=== PATIENT | female | born 1990 | race Caucasian/White ===

== ENCOUNTER 2020-08-04 07:28 | Day surgery (SDC) | payer BC ==
[~2020-08-04 07:28] MED LIST: Lactated Ringers 1,000 ML IV SCH; Lidocaine 1% 4 ML ONE; Lidocaine 1%/Sod Bicarbonate in NS 8.4% 1 ML Syringe IDERM PRN; Propofol 200 MG/20 ML SDV ONE; Sodium Chloride 0.9% 10 ML Syringe FLUSH PRN
--- NOTE | 2020-08-04 07:48 | PCM.PREANE ---
Preanesthetic Assessment - Anesthesia/Transfusion/Family Hx Anesthesia History: Prior Anesthesia Without Reaction Family History of Anesthesia Reaction: No Transfusion History: No Prior Transfusion(s) - Review of Systems General: No Symptoms Pulmonary: No Symptoms Cardiovascular: No Symptoms Gastrointestinal: No Symptoms Neurological: No Symptoms Other: Reports: None - Physical Assessment NPO Status Date: 08/03/20 NPO Status Time: 20:30 ASA Class: 2 Mental Status: Alert & Oriented x3 Airway Class: Mallampati = 1 Dentition: Reports: Normal Dentition, Dentures Thyro-Mental Finger Breadths: 3 Mouth Opening Finger Breadths: 3 ROM/Head Extension: Full Lungs: Clear to Auscultation, Normal Respiratory Effort Cardiovascular: Regular Rate, Regular Rhythm - Allergies Allergies/Adverse Reactions: Allergies Allergy/AdvReac Type Severity Reaction Status Date / Time amoxicillin Allergy Hives Verified 08/03/20 13:43 sulfamethoxazole Allergy Hives Verified 08/03/20 13:43 [From Bactrim] trimethoprim [From Bactrim] Allergy Hives Verified 08/03/20 13:43 - Acknowledgements Anesthesia Type Planned: MAC Pt an Appropriate Candidate for the Planned Anesthesia: Yes Alternatives and Risks of Anesthesia Discussed w Pt/Guardian: Yes Pt/Guardian Understands and Agrees with Anesthesia Plan: Yes PreAnesthesia Questionnaire HEENT History: Reports: Allergic Rhinitis, Impaired Vision, Sinusitis Respiratory History: Reports: None Gastrointestinal History: Reports: Other (See Below) Other Gastrointestinal History: abdominal pain, nausea and vomiting Genitourinary History: Reports: None [employer]ETING [employer]GER [employer] COMM[employer]ICATIONS History: Reports: Other (See Below) Other OB/BYN History: vaginal irritation Musculoskeletal History: Reports: None Neurological History: Reports: None Psychiatric History: Reports: ADHD, Anxiety Endocrine/Metabolic History: Reports: None Hematologic History: Reports: None Immunologic History: Reports: None Oncologic (Cancer) History: Reports: None Dermatologic History: Reports: Other (See Below) Other Dermatologic History: nevus - Past Surgical History Head Surgeries/Procedures: Reports: None HEENT Surgical History: Reports: Oral Surgery Cardiovascular Surgical History: Reports: None Respiratory Surgical History: Reports: None GI Surgical History: Reports: None Female Surgical History: Reports: None Male Surgical History: Reports: None Endocrine Surgical History: Reports: None Neurological Surgical History: Reports: None Musculoskeletal Surgical History: Reports: None Oncologic Surgical History: Reports: None Dermatological Surgical History: Reports: None - SUBSTANCE USE Smoking Status *Q: Former Smoker Recreational Drug Use History: No - HOME MEDS Home Medications: Home Meds Loratadine [Claritin] 10 mg PO DAILY 08/03/20 [History] Methylphenidate [Metadate ER] 10 mg PO BID 08/03/20 [History] Mometasone Furoate [Nasonex [place]] 1 dose NASBOTH DAILY 08/03/20 [History] Olopatadine [Pataday 0.2% Ophth Soln] 1 drop EYEBOTH ASDIRECTED PRN 08/03/20 [History] Ondansetron [Zofran] 4 mg PO Q6HR PRN 08/03/20 [History] - CURRENT (IN HOUSE) MEDS Current Meds: Current Medications Lactated Ringer's (Ringers, Lactated) 1,000 mls @ 125 mls/hr IV ASDIRECTED BRADY Stop: 08/04/20 23:00 Lidocaine/Sodium Bicarbonate (Buffered Lidocaine 1% In Ns 8.4%) 0.25 ml IDERM ONETIME PRN PRN Reason: Prior to IV Start Stop: 08/04/20 18:00 Sodium Chloride (Saline Flush) 10 ml FLUSH ASDIRECTED PRN PRN Reason: Keep Vein Open Stop: 08/04/20 18:00 Discontinued Medications Lidocaine HCl (Xylocaine-Mpf 1%) Confirm Administered Dose 4 mls @ as directed .ROUTE .STK-MED ONE Stop: 08/04/20 07:01 Propofol (Diprivan 20 Ml) Confirm Administered Dose 200 mg .ROUTE .STK-MED ONE Stop: 08/04/20 07:01
--- NOTE | 2020-08-04 09:23 | PCM.PRNOTE ---
- Free Text/Narrative Note: Date: 08/04/2020 Procedure: diagnostic esophagogastroduodenoscopy Indication: epigastric pain, reflux-type symptoms Endoscopist: Ismael Barker MD Findings: small hiatal hernia with gross appearance of mild reflux esophagitis Detailed Report: The patient was taken to the endoscopy suite and placed in left lateral decubitus position. Time out was performed and monitored sedation initiated. A bite block was placed. The endoscope was inserted orally and advanced to the second portion of the duodenum with ease. The duodenal mucosa appeared normal. A biopsy with cold forceps was obtained. The stomach appeared normal. A sample of the gastric antral mucosa was obtained. On retroflexion within the stomach, a small sliding hiatal hernia was noted. The Z line appeared fairly normal. A biopsy of distal esophageal mucosa was obtained. There appeared to be mild linear erythematous streaking of the distal esophageal mucosa. Air was suctioned from the stomach prior to removal of the scope. The patient tolerated the procedure well.
--- NOTE | 2020-08-04 09:28 | PCM48HPAN ---
Post Anesthesia Note - EVALUATION WITHIN 48HRS OF ANESTHETIC Vital Signs in Normal Range: Yes Patient Participated in Evaluation: Yes Respiratory Function Stable: Yes Airway Patent: Yes Cardiovascular Function Stable: Yes Hydration Status Stable: Yes Pain Control Satisfactory: Yes Nausea and Vomiting Control Satisfactory: Yes Mental Status Recovered: Yes Vital Signs: Last Vital Signs Temp 36.4 C 08/04/20 07:40 Pulse 80 08/04/20 07:40 Resp 16 08/04/20 07:40 BP 111/64 08/04/20 07:40 Pulse Ox 97 08/04/20 07:40
== END 2020-08-04 09:55 | disposition home or self-care (01) ==
LOC: JD.SDS 07:28
PROVIDERS: ATTEND Surgery
DX: K21.00 Gastro-esophageal reflux disease with esophagitis, without bleeding (principal); K44.9 Diaphragmatic hernia without obstruction or gangrene; F90.9 Attention-deficit hyperactivity disorder, unspecified type; F41.9 Anxiety disorder, unspecified; Z88.0 Allergy status to penicillin; Z88.1 Allergy status to other antibiotic agents; Z79.899 Other long term (current) drug therapy; Z87.891 Personal history of nicotine dependence; Z88.2 Allergy status to sulfonamides; Z88.8 Allergy status to other drugs, medicaments and biological substances; Z01.812 Encounter for preprocedural laboratory examination; Z20.828 Contact with and (suspected) exposure to other viral communicable diseases
CPT/HCPCS: 43239; 81025; J2001; J2704; J7120; 00731

== ENCOUNTER 2021-06-04 21:44 | Inpatient (IN) | payer BC ==
[2021-06-04] MEDS ORDERED: Sodium Chloride 0.9% 10 ML Syringe FLUSH PRN (22:27)
[2021-06-04] MEDS ORDERED: Nalbuphine 10 MG/1 ML Vial IVPUSH PRN (22:27)
[2021-06-04] MEDS ORDERED: Calcium Carbonate 500 MG Tab.Chew PO PRN (22:27)
[2021-06-04] MEDS ORDERED: Ondansetron 4 MG/2 ML SDV IVPUSH PRN (22:27)
[2021-06-04] MEDS ORDERED: Oxytocin/Lactated Ringers 10 UNIT/1,000 ML BAG IV SCH ×2 (22:30→22:45)
[2021-06-04] MEDS: Lactated Ringers 1,000 ML IV SCH (23:05)
[2021-06-05] MEDS ORDERED: fentaNYL 100 MCG/2 ML SDV EPIDUR PRN (04:19)
[2021-06-05] MEDS ORDERED: ePHEDrine 50 MG/ML SDV IVPUSH PRN (04:19)
[2021-06-05] MEDS ORDERED: Bupivacaine/fentaNYL/NS 100 ML Bag EPIDUR PRN (04:19)
[2021-06-05] MEDS ORDERED: diphenhydrAMINE 50 MG/ML SDV IVPUSH PRN (04:19)
--- NOTE | 2021-06-05 04:19 | PCM.PREANE ---
Preanesthetic Assessment - Procedure Proposed Procedure: Continuous labor epidural - Anesthesia/Transfusion/Family Hx Anesthesia History: Prior Anesthesia Without Reaction Transfusion History: No Prior Transfusion(s) - Review of Systems General: No Symptoms Pulmonary: No Symptoms Cardiovascular: No Symptoms Gastrointestinal: No Symptoms Neurological: No Symptoms Other: Reports: None - Physical Assessment Vital Signs: Last Vital Signs Temp 98.1 F 06/04/21 21:47 Pulse 95 06/04/21 21:47 Resp 16 06/04/21 21:47 BP 126/71 06/04/21 21:47 Pulse Ox 98 06/04/21 21:47 Height: 1.6 m Weight: 89.63 kg ASA Class: 2 Mental Status: Alert & Oriented x3 Airway Class: Mallampati = 2 Dentition: Reports: Normal Dentition Thyro-Mental Finger Breadths: 3 Mouth Opening Finger Breadths: 3 ROM/Head Extension: Full Lungs: Clear to Auscultation, Normal Respiratory Effort Cardiovascular: Regular Rate, Regular Rhythm - Lab Values: Laboratory Last Values WBC 14.44 K/mm3 (3.98-10.04) H 06/04/21 22:50 RBC 3.76 M/mm3 (3.98-5.22) L 06/04/21 22:50 Hgb 10.9 gm/dl (11.2-15.7) L D 06/04/21 22:50 Hct 33.5 % (34.1-44.9) L 06/04/21 22:50 MCV 89.1 fl (79.4-94.8) 06/04/21 22:50 MCH 29.0 pg (25.6-32.2) 06/04/21 22:50 MCHC 32.5 g/dl (32.2-35.5) 06/04/21 22:50 RDW Std Deviation 46.7 fL (36.4-46.3) H 06/04/21 22:50 Plt Count 238 K/mm3 (182-369) D 06/04/21 22:50 MPV 10.3 fl (9.4-12.3) 06/04/21 22:50 Neut % (Auto) 76.8 % (34.0-71.1) H 06/04/21 22:50 Lymph % (Auto) 12.0 % (19.3-51.7) L 06/04/21 22:50 [place] % (Auto) 9.8 % (4.7-12.5) 06/04/21 22:50 Eos % (Auto) 0.8 (0.7-5.8) 06/04/21 22:50 Baso % (Auto) 0.1 % (0.1-1.2) 06/04/21 22:50 Neut # (Auto) 11.10 K/mm3 (1.56-6.13) H 06/04/21 22:50 Lymph # (Auto) 1.73 K/mm3 (1.18-3.74) 06/04/21 22:50 [place] # (Auto) 1.42 K/mm3 (0.24-0.36) H 06/04/21 22:50 Eos # (Auto) 0.11 K/mm3 (0.04-0.36) 06/04/21 22:50 Baso # (Auto) 0.01 K/mm3 (0.01-0.08) 06/04/21 22:50 Membrane Rupture Positive H 06/04/21 22:00 SARS-CoV-2 RNA (LEONEL) Negative (NEGATIVE) 06/04/21 22:30 Blood Type A NEGATIVE 06/04/21 22:50 Gel Antibody Screen Positive 06/04/21 22:50 - Allergies Allergies/Adverse Reactions: Allergies Allergy/AdvReac Type Severity Reaction Status Date / Time amoxicillin Allergy Hives Verified 06/04/21 21:52 sulfamethoxazole Allergy Hives Verified 06/04/21 21:52 [From Bactrim] trimethoprim [From Bactrim] Allergy Hives Verified 06/04/21 21:52 - Acknowledgements Anesthesia Type Planned: Epidural Pt an Appropriate Candidate for the Planned Anesthesia: Yes Alternatives and Risks of Anesthesia Discussed w Pt/Guardian: Yes Pt/Guardian Understands and Agrees with Anesthesia Plan: Yes PreAnesthesia Questionnaire HEENT History: Reports: Allergic Rhinitis, Impaired Vision, Sinusitis Cardiovascular History: Reports: Other (See Below) Other Cardiovascular History: chest pain Respiratory History: Reports: None Gastrointestinal History: Reports: Other (See Below) Other Gastrointestinal History: abdominal pain, nausea and vomiting Genitourinary History: Reports: None 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 OB/BYN History: vaginal irritation Musculoskeletal History: Reports: None Neurological History: Reports: None Psychiatric History: Reports: ADHD, Anxiety Endocrine/Metabolic History: Reports: None Hematologic History: Reports: None Immunologic History: Reports: None Oncologic (Cancer) History: Reports: None Dermatologic History: Reports: Other (See Below) Other Dermatologic History: nevus - Past Surgical History Head Surgeries/Procedures: Reports: None HEENT Surgical History: Reports: Oral Surgery Cardiovascular Surgical History: Reports: None Respiratory Surgical History: Reports: None GI Surgical History: Reports: None Female Surgical History: Reports: None Endocrine Surgical History: Reports: None Neurological Surgical History: Reports: None Musculoskeletal Surgical History: Reports: None Oncologic Surgical History: Reports: None Dermatological Surgical History: Reports: None - SUBSTANCE USE Tobacco Use Status *Q: Never Tobacco User Second Hand Smoke Exposure: No Recreational Drug Use History: No - HOME MEDS Home Medications: Home Meds Ferrous Sulfate [Iron] 1 tab PO 06/04/21 [History] Omeprazole Magnesium [Prilosec Otc] 1 06/04/21 [History] Vits #93/Iron Fum/FA [ Formula Tablet] 1 tab PO DAILY 06/04/21 [History] - CURRENT (IN HOUSE) MEDS Current Meds: Current Medications Calcium Carbonate/Glycine (Calcium Carbonate 500 Mg Tab.Chew) 1,000 mg PO Q2H PRN PRN Reason: Indigestion Lactated Ringer's (Ringers, Lactated) 1,000 mls @ 100 mls/hr IV ASDIRECTED BRADY Last Admin: 06/04/21 23:05 Dose: 100 mls/hr Documented by: Oxytocin/Lactated Ringer's (Pitocin In Lr 10 Units/1,000 Ml) 10 unit in 1,000 mls @ 500 mls/hr IV .CONTINUOUS BRADY Oxytocin/Lactated Ringer's (Pitocin In Lr 10 Units/1,000 Ml) 10 unit in 1,000 mls @ 12 mls/hr IV TITRATE BRADY; Protocol Last Titration: 06/05/21 03:30 Dose: 12 munits/min, 72 mls/hr Documented by: Nalbuphine HCl (Nalbuphine 10 Mg/1 Ml Vial) 10 mg IVPUSH Q2H PRN PRN Reason: Pain Last Admin: 06/05/21 02:16 Dose: 10 mg Documented by: Ondansetron HCl (Ondansetron 4 Mg/2 Ml Sdv) 4 mg IVPUSH Q4H PRN PRN Reason: Nausea/Vomiting Sodium Chloride (Sodium Chloride 0.9% 10 Ml Syringe) 10 ml FLUSH ASDIRECTED PRN PRN Reason: Keep Vein Open
[2021-06-05] MEDS: Lactated Ringers 1,000 ML IV SCH ×2 (04:38→06:57)
[2021-06-05] MEDS ORDERED: Oxytocin/Lactated Ringers 20 UNIT/1,000 ML BAG IV SCH (08:45)
--- NOTE | 2021-06-05 09:08 | PCM.LDHP ---
L&D History of Present Illness - General Date of Service: 06/05/21 Admit Problem/Dx: Patient Status Order with Admit Dx/Problem 06/04/21 21:47 Patient Status [ADT] Routine 06/04/21 22:28 Patient Status [ADT] Routine Admission Diagnosis/Problem Admission Diagnosis/Problem 06/05/21 09:00 Juan Jose is a 31-year-old 1 para 0 female presently at 39-1/7 weeks with an JOSH of 06/11/2021 admitted on 06/04/2021 with SROM and positive AmniSure in early labor. Source of Information: Patient History Limitations: Reports: No Limitations - History of Present Illness Introduction:: Juan Jose is a 31-year-old 1 para 0 female presently at 39-1/7 weeks with an JOSH of 06/11/2021 admitted on 06/04/2021 with SROM and positive AmniSure in early labor. She reports being seen in L&D over the weekend with reported loss of vaginal fluid. AmniSure at that time was negative. This leakage increased and patient was again seen on the evening of 06/04/2021 at which time AmniSure returned positive. She is admitted. She was started on Pitocin induction because of somewhat uncertain time of onset of leakage of fluid. She is presently ashish and has had an epidural placed with good results. PRACTICE COORDINATOR history: 1 para 0. JOSH 06/11/2021 Ultrasound done on 11/04/2020 at 8-5/7 weeks gestational age. Patient was seen on a very regular basis throughout the . Her vital signs remained stable throughout the . Her weight gain was from 133 pounds to approximately 196 pounds for a 63 pound increase. She is made good fundal height growth. has been unremarkable by her history. Laboratory testing shows blood to be a negative. Patient did receive Rh immunoglobulin therapy at the end of second trimester. Her first hemoglobin was 12.0 and platelets were 268,000. She is rubella immune. RPR was nonreactive. Hepatitis B surface antigen and hepatitis C antibody evaluations were negative and nonreactive. Chlamydia and gonorrhea assays were both negative. Her 1 hour GTT in second trimester was normal at 104 mg/dL. Second trimester met hemoglobin was 10.8 g/dL and patient was started on iron supplementation. Platelets at that time were 291,000. Her group B strep screen is negative. Allergies: 1. Amoxicillin 2. Bactrim DS Medications: 1. vitamins 1 daily 2. Loratadine as needed for seasonal allergies 3. Nasonex as needed for allergies 4. Omeprazole early in the for nausea 5. Ferrous sulfate 325 mg p.o. daily Past medical history: 1. Gastroesophageal reflux diseaseevaluated with upper GI which was found to be normal 2. Seasonal allergies Past surgical history: 1. Randolph teeth extraction 2. Upper GI Family history: Parents are alive and well. Father with history of diabetes just starting on medications. Patient has 3 siblings who are alive and well. Maternal grand parents are alive and well with no significant health problems. Paternal grandfather secondary to Parkinson's. Paternal grandmother is alive and well. There is no family history of of bleeding disorders, blood fede tting disorders, unusual reactions to medications or related problems. Social history: Patient is . is Macho. She lives in [place]. She does not use any significant also alcohol, drugs or tobacco. Review of systems: In general patient has no complaints. Skin: Negative Lungs: No infectious symptoms or shortness of breath Cardiovascular: No chest pain or exercise intolerance Breasts: No lumps, changes in size, pain, dimpling, discharge or axillary or supraclavicular concerns. GI: Negative : body habitus changes Musculoskeletal: Negative Neurological: Negative In general the patient is well-developed, well-nourished, overweight, pleasant female of stated age in no acute distress. Skin is warm dry without lesions. HEENT, neck and back within normal limits. Lungs are clear with good breath sounds in all lung zepeda. Cardiovascular exam shows regular and rhythm without murmurs. Breast exam is deferred have been done at first annual visit and found to be normal. It is not repeated at this time. Abdomen is fundal height consistent with dates. Last evaluation clinic fundal height was 37 cm with baby in vertex presentation. Genital per digital exam shows cervix to be 4 cm, 9% effaced, -1 station, anterior, soft, cephalic presentation Extremities and neurological exam are grossly within normal limits. Pain Score: 2 - Related Data Allergies/Adverse Reactions: Allergies Allergy/AdvReac Type Severity Reaction Status Date / Time amoxicillin Allergy Hives Verified 06/04/21 21:52 sulfamethoxazole Allergy Hives Verified 06/04/21 21:52 [From Bactrim] trimethoprim [From Bactrim] Allergy Hives Verified 06/04/21 21:52 Home Medications: Home Meds Ferrous Sulfate [Iron] 1 tab PO 06/04/21 [History] Omeprazole Magnesium [Prilosec Otc] 1 06/04/21 [History] Vits #93/Iron Fum/FA [ Formula Tablet] 1 tab PO DAILY 06/04/21 [History] Past Medical History HEENT History: Reports: Allergic Rhinitis, Impaired Vision, Sinusitis Cardiovascular History: Reports: Other (See Below) Other Cardiovascular History: chest pain Respiratory History: Reports: None Gastrointestinal History: Reports: Other (See Below) Other Gastrointestinal History: abdominal pain, nausea and vomiting Genitourinary History: Reports: None PRACTICE COORDINATOR History: Reports: Other OB/BYN History: vaginal irritation Musculoskeletal History: Reports: None Neurological History: Reports: None Psychiatric History: Reports: ADHD, Anxiety Endocrine/Metabolic History: Reports: None Hematologic History: Reports: None Immunologic History: Reports: None Oncologic (Cancer) History: Reports: None Dermatologic History: Reports: Other (See Below) Other Dermatologic History: nevus - Past Surgical History Head Surgeries/Procedures: Reports: None HEENT Surgical History: Reports: Oral Surgery Cardiovascular Surgical History: Reports: None Respiratory Surgical History: Reports: None GI Surgical History: Reports: None Female Surgical History: Reports: None Endocrine Surgical History: Reports: None Neurological Surgical History: Reports: None Musculoskeletal Surgical History: Reports: None Oncologic Surgical History: Reports: None Dermatological Surgical History: Reports: None Social & Family History - Family History Family Medical History: No Pertinent Family History - Tobacco Use Tobacco Use Status *Q: Never Tobacco User Second Hand Smoke Exposure: No - Caffeine Use Caffeine Use: Reports: Coffee - Recreational Drug Use Recreational Drug Use: No H&P Review of Systems - Review of Systems: Review Of Systems: See Below L&D Exam - Exam Exam: See Below - Vital Signs Vital Signs: Last Vital Signs Temp 36.7 C 06/04/21 21:47 Pulse 95 06/04/21 21:47 Resp 16 06/04/21 21:47 BP 126/71 06/04/21 21:47 Pulse Ox 98 06/04/21 21:47 Weight: 89.63 kg - Patient Data Lab Results Last 24 hrs: Laboratory Results - last 24 hr 06/04/21 06/04/21 06/04/21 Range/Units 22:00 22:30 22:50 WBC 14.44 H (3.98-10.04) K/mm3 RBC 3.76 L (3.98-5.22) M/mm3 Hgb 10.9 L D (11.2-15.7) gm/dl Hct 33.5 L (34.1-44.9) % MCV 89.1 (79.4-94.8) fl MCH 29.0 (25.6-32.2) pg MCHC 32.5 (32.2-35.5) g/dl RDW Std Deviation 46.7 H (36.4-46.3) fL Plt Count 238 D (182-369) K/mm3 MPV 10.3 (9.4-12.3) fl Neut % (Auto) 76.8 H (34.0-71.1) % Lymph % (Auto) 12.0 L (19.3-51.7) % Todd % (Auto) 9.8 (4.7-12.5) % Eos % (Auto) 0.8 (0.7-5.8) Baso % (Auto) 0.1 (0.1-1.2) % Neut # (Auto) 11.10 H (1.56-6.13) K/mm3 Lymph # (Auto) 1.73 (1.18-3.74) K/mm3 Todd # (Auto) 1.42 H (0.24-0.36) K/mm3 Eos # (Auto) 0.11 (0.04-0.36) K/mm3 Baso # (Auto) 0.01 (0.01-0.08) K/mm3 Membrane Rupture Positive H SARS-CoV-2 RNA (LEONEL) Negative (NEGATIVE) Blood Type Gel Antibody Screen 06/04/21 Range/Units 22:50 WBC (3.98-10.04) K/mm3 RBC (3.98-5.22) M/mm3 Hgb (11.2-15.7) gm/dl Hct (34.1-44.9) % MCV (79.4-94.8) fl MCH (25.6-32.2) pg MCHC (32.2-35.5) g/dl RDW Std Deviation (36.4-46.3) fL Plt Count (182-369) K/mm3 MPV (9.4-12.3) fl Neut % (Auto) (34.0-71.1) % Lymph % (Auto) (19.3-51.7) % Todd % (Auto) (4.7-12.5) % Eos % (Auto) (0.7-5.8) Baso % (Auto) (0.1-1.2) % Neut # (Auto) (1.56-6.13) K/mm3 Lymph # (Auto) (1.18-3.74) K/mm3 Todd # (Auto) (0.24-0.36) K/mm3 Eos # (Auto) (0.04-0.36) K/mm3 Baso # (Auto) (0.01-0.08) K/mm3 Membrane Rupture SARS-CoV-2 RNA (LEONEL) (NEGATIVE) Blood Type A NEGATIVE Gel Antibody Screen Positive Result Diagrams: 06/04/21 22:50 - Problem List (1) 39 weeks gestation of SNOMED Code(s): 03909646 ICD Code: Z3A.39 - 39 WEEKS GESTATION OF Status: Acute Current Visit: Yes (2) SROM (spontaneous rupture of membranes) SNOMED Code(s): 371430848 ICD Code: [id number] - Status: Acute Current Visit: Yes (3) Obesity SNOMED Code(s): 838023793, 745506580 ICD Code: E66.9 - OBESITY, UNSPECIFIED Status: Acute Current Visit: Yes Problem List Initiated/Reviewed/Updated: Yes Orders Last 24hrs: Active Orders 24 hr Category Date Time Status Patient Status [ADT] Routine ADT 06/04/21 22:28 Active Activity as Tolerated [RC] PFP Care 06/04/21 22:28 Active Communication Order [RC] ASDIRECTED Care 06/04/21 22:28 Active Heart Tones [RC] ASDIRECTED Care 06/04/21 22:28 Active Non Stress Test [RC] PER UNIT ROUTINE Care 06/04/21 21:47 Active Notify Provider [RC] ASDIRECTED Care 06/05/21 04:19 Active Notify Provider [RC] PFP Care 06/04/21 22:28 Active Notify Provider [RC] PRN Care 06/04/21 22:28 Active Peripheral IV Care [RC] . DIRECTED Care 06/04/21 22:28 Active Vital Signs [RC] PER UNIT ROUTINE Care 06/04/21 21:47 Active ANTIBODY IDENTIFICATION [BBK] Stat Lab 06/04/21 22:50 Results RAPID PLASMA REAGIN,RPR [CHEM] Routine Lab 06/04/21 22:50 Received TYPE AND SCREEN [BBK] Stat Lab 06/04/21 22:50 Results Bupivacaine/fentaNYL/NS [fentaNYL/Bupivacaine/NS 2 MCG- Med 06/05/21 04:19 Active 0.125% 100 ML] 100 ml EPIDUR ASDIRECTED PRN Calcium Carbonate [Tums] Med 06/04/21 22:27 Active 1,000 mg PO Q2H PRN Lactated Ringers [Ringers, Lactated] 1,000 ml Med 06/04/21 22:30 Active IV ASDIRECTED Nalbuphine [Nubain] Med 06/04/21 22:27 Active 10 mg IVPUSH Q2H PRN Ondansetron [Zofran] Med 06/04/21 22:27 Active 4 mg IVPUSH Q4H PRN Oxytocin/Lactated Ringers [Pitocin in LR 10 Units/1,000 Med 06/04/21 22:30 Active ML] 10 unit in 1,000 ml IV .CONTINUOUS Oxytocin/Lactated Ringers [Pitocin in LR 10 Units/1,000 Med 06/04/21 22:45 Ac tive ML] 10 unit in 1,000 ml IV TITRATE Oxytocin/Lactated Ringers [Pitocin in LR 20 Units/1,000 Med 06/05/21 08:45 Active ML] 20 unit in 1,000 ml IV TITRATE Sodium Chloride 0.9% [Saline Flush] Med 06/04/21 22:27 Active 10 ml FLUSH ASDIRECTED PRN diphenhydrAMINE [Benadryl] Med 06/05/21 04:19 Active 25 mg IVPUSH Q6H PRN ePHEDrine [ePHEDrine sulfate] Med 06/05/21 04:19 Active 5 mg IVPUSH ASDIRECTED PRN fentaNYL [Sublimaze] Med 06/05/21 04:19 Active 100 mcg EPIDUR Q3H PRN Electronic Heart Tones Ext w TOCO [WOMSER] Oth 06/04/21 22:28 Ordered Routine Electronic Heart Tones Internal [WOMSER] Per Unit Oth 06/04/21 22:28 Ordered Routine Peripheral IV Insertion Adult [OM.PC] Routine Oth 06/04/21 22:28 Ordered Resuscitation Status Routine Resus Stat 06/04/21 21:47 Ordered Medication Orders Calcium Carbonate/Glycine (Calcium Carbonate 500 Mg Tab.Chew) 1,000 mg PO Q2H PRN PRN Reason: Indigestion Diphenhydramine HCl (Diphenhydramine 50 Mg/Ml Sdv) 25 mg IVPUSH Q6H PRN PRN Reason: pruritis Ephedrine Sulfate (Ephedrine 50 Mg/Ml Sdv) 5 mg IVPUSH ASDIRECTED PRN PRN Reason: Hypotension Fentanyl (Fentanyl 100 Mcg/2 Ml Sdv) 100 mcg EPIDUR Q3H PRN PRN Reason: Pain Last Admin: 06/05/21 04:37 Dose: 100 mcg Documented by: NAVDEEP Fentanyl/Bupivacaine HCl (Bupivacaine/Fentanyl/Ns 100 Ml Bag) 100 ml EPIDUR ASDIRECTED PRN PRN Reason: Pain Last Admin: 06/05/21 04:38 Dose: 100 ml Documented by: NAVDEEP Lactated Ringer's (Ringers, Lactated) 1,000 mls @ 100 mls/hr IV ASDIRECTED BRADY Last Admin: 06/05/21 06:57 Dose: 100 mls/hr Documented by: LIUDMILALCBETTIE Infusion: 06/05/21 06:57 Dose: 100 mls/hr Documented by: Admin: 06/05/21 04:38 Dose: 100 mls/hr Documented by: Infusion: 06/05/21 04:38 Dose: 100 mls/hr Documented by: Admin: 06/04/21 23:05 Dose: 100 mls/hr Documented by: NAVDEEP Oxytocin/Lactated Ringer's (Pitocin In Lr 10 Units/1,000 Ml) 10 unit in 1,000 mls @ 500 mls/hr IV .CONTINUOUS BRADY Oxytocin/Lactated Ringer's (Pitocin In Lr 10 Units/1,000 Ml) 10 unit in 1,000 mls @ 12 mls/hr IV TITRATE BRADY; Protocol Last Titration: 06/05/21 08:43 Dose: 20 munits/min, 120 mls/hr Documented by: Titration: 06/05/21 08:19 Dose: 18 munits/min, 108 mls/hr Documented by: [email or web address] Titration: 06/05/21 07:39 Dose: 16 munits/min, 96 mls/hr Documented by: JONNATHANBMAR Titration: 06/05/21 05:45 Dose: 14 munits/min, 84 mls/hr Documented by: Titration: 06/05/21 03:30 Dose: 12 munits/min, 72 mls/hr Documented by: Titration: 06/05/21 02:55 Dose: 10 munits/min, 60 mls/hr Documented by: Titration: 06/05/21 02:10 Dose: 8 munits/min, 48 mls/hr Documented by: Titration: 06/05/21 01:25 Dose: 6 munits/min, 36 mls/hr Documented by: Titration: 06/05/21 00:00 Dose: 4 munits/min, 24 mls/hr Documented by: Admin: 06/04/21 23:05 Dose: 2 munits/min, 12 mls/hr Documented by: NAVDEEP Oxytocin/Lactated Ringer's (Pitocin In Lr 20 Units/1,000 Ml) 20 unit in 1,000 mls @ 60 mls/hr IV TITRATE BRADY; Protocol Nalbuphine HCl (Nalbuphine 10 Mg/1 Ml Vial) 10 mg IVPUSH Q2H PRN PRN Reason: Pain Last Admin: 06/05/21 02:16 Dose: 10 mg Documented by: NAVDEEP Ondansetron HCl (Ondansetron 4 Mg/2 Ml Sdv) 4 mg IVPUSH Q4H PRN PRN Reason: Nausea/Vomiting Sodium Chloride (Sodium Chloride 0.9% 10 Ml Syringe) 10 ml FLUSH ASDIRECTED PRN PRN Reason: Keep Vein Open Assessment/Plan Comment:: Luis Miguel Ingram is a 31-year-old 1 para 0 female presently at 39-1/7 weeks wit h an JOSH of 06/11/2021 admitted on 06/04/2021 with SROM and positive AmniSure in early labor. 2. Group B strep negative 3. Risk factors include extended time since first reported rupture of membranes , obesity 4. Epidural in place and working well 5. Patient desires breast-feeding. Plan: 1. Continue with Pitocin which is presently at 18 milliunits/min. Anticipate 2. Continue epidural 3. Routine labor and delivery care 4. Anticipate 5. Support breast-feeding decision. 6. Routine admission labs including COVID-19, CBC, RPR.
[2021-06-05] MEDS ORDERED: Acetaminophen 325 MG Tab PO PRN (09:23)
[2021-06-05] MEDS ORDERED: Ibuprofen 600 MG Tab PO PRN (13:13)
--- NOTE | 2021-06-05 13:55 | PCM.SN.2 ---
- Free Text/Narrative Note: Delivery note: Stage I: Juan Jose is a 31-year-old 1 para 0 female presently at 39-1/7 weeks with an JOSH of 06/11/2021 admitted on 06/04/2021 with SROM and positive AmniSure in early labor. She was initially started on Pitocin and throughout the course of the night of 06/04/2021 and the a.m. of 06/05/2021 Oleg made good progress. She had an epidural placed for labor analgesia with good results. She became completely dilated by approximately 1130 hrs. She pushed well and within the course of approximately 45 minutes delivered. Stage II: Oleg delivered at 1229 hrs. on 06/05/2021. She delivered a viable, harvey, male infant with Apgars of 8 and 9, a weight of 6 pounds 2.1 ounces (2780 g), Apgars of 8 and 9 and a length of 21.0 inches. The baby delivered easily with gentle downward traction to deliver the anterior shoulder then upward traction to deliver the posterior shoulder. No laceration was encountered and no stitches were needed. After complete delivery of the baby he was placed on mom's abdomen. He was dried with warm blanket and nose and mouth suctioned. The umbilical cord was allowed to pulsate for approximately 3 minutes then was clamped x2 and cut by the baby's Father Macho. 3 vessels were noted in the cord. Cord blood was obtained. Pitocin was increased to 500 cc an hour to facilitate increase in uterine tone and decrease likelihood of uterine bleeding. Stage III: The placenta delivered in a Cuellar presentation, it appeared intact and complete. It was discarded per patient desire. Estimated blood loss was about 125 cc. Patient plans to breast-feed. Condition: Good.
[2021-06-05] MEDS ORDERED: Benzocaine/Menthol 20%-0.5% Spray 56 GM Canister TOP PRN (14:07)
[2021-06-05] MEDS ORDERED: Witch Hazel Medicated Pads 40/Jar TOP PRN (14:07)
[2021-06-05] MEDS: Acetaminophen 325 MG Tab PO PRN (15:40)
[2021-06-05] MEDS: Ibuprofen 600 MG Tab PO PRN (20:45)
[2021-06-06] MEDS: Docusate Sodium 100 MG Cap PO PRN ×2 (06:26→21:40)
[2021-06-06] MEDS: Ibuprofen 600 MG Tab PO PRN ×3 (06:27→21:39)
--- NOTE | 2021-06-06 07:43 | PCM.PNPP ---
- General Info Date of Service: 06/06/21 Functional Status: Reports: Pain Controlled - Review of Systems General: Reports: No Symptoms HEENT: Reports: No Symptoms Pulmonary: Reports: No Symptoms Cardiovascular: Reports: No Symptoms Gastrointestinal: Reports: No Symptoms Genitourinary: Reports: No Symptoms Musculoskeletal: Reports: No Symptoms Skin: Reports: No Symptoms Neurological: Reports: No Symptoms Psychiatric: Reports: No Symptoms - General Info Date of Service: 06/06/21 - Patient Data Vital Signs - Most Recent: Last Vital Signs Temp 37.3 C 06/05/21 20:38 Pulse 87 06/05/21 20:38 Resp 14 06/05/21 20:38 BP 118/80 06/05/21 20:38 Pulse Ox 99 06/05/21 20:38 Weight - Most Recent: 89.63 kg I&O - Last 24 Hours: Intake & Output 06/05/21 06/06/21 06/06/21 22:59 06:59 14:59 Output Total 165 Balance -165 Lab Results - Last 24 Hours: Laboratory Results - last 24 hr 06/04/21 06/04/21 Range/Units 22:50 22:50 RPR Non-reactive (NONREACTIVE) Antibody Identification Anti-D Med Orders - Current: Current Medications Acetaminophen (Acetaminophen 325 Mg Tab) 650 mg PO Q4H PRN PRN Reason: mild pain or fever Last Admin: 06/05/21 15:40 Dose: 650 mg Documented by: Benzocaine/Menthol (Benzocaine/Menthol 20%-0.5% Rosalia 56 Gm Canister) 0 gm TOP ASDIRECTED PRN PRN Reason: Perineal Comfort Measure Last Admin: 06/05/21 14:38 Dose: 1 pad Documented by: Docusate Sodium (Docusate Sodium 100 Mg Cap) 100 mg PO BID PRN PRN Reason: Constipation Last Admin: 06/06/21 06:26 Dose: 100 mg Documented by: Ibuprofen (Ibuprofen 600 Mg Tab) 600 mg PO Q4H PRN PRN Reason: Mild pain or fever Last Admin: 06/06/21 06:27 Dose: 600 mg Documented by: Prenat Multivit/Tank Riveter/Iron/Folic Ac ( Multivitamin With Calcium/Folic Acid/Iron Tab) 1 each PO DAILY BRADY Witch Paola (Witch Paola Medicated Pads 40/Jar) 1 pad TOP ASDIRECTED PRN PRN Reason: Perineal Comfort Measure Discontinued Medications Acetaminophen (Acetaminophen 325 Mg Tab) 650 mg PO Q4H PRN PRN Reason: pain Last Admin: 06/05/21 09:44 Dose: 650 mg Documented by: Calcium Carbonate/Glycine (Calcium Carbonate 500 Mg Tab.Chew) 1,000 mg PO Q2H PRN PRN Reason: Indigestion Diphenhydramine HCl (Diphenhydramine 50 Mg/Ml Sdv) 25 mg IVPUSH Q6H PRN PRN Reason: pruritis Ephedrine Sulfate (Ephedrine 50 Mg/Ml Sdv) 5 mg IVPUSH ASDIRECTED PRN PRN Reason: Hypotension Fentanyl (Fentanyl 100 Mcg/2 Ml Sdv) 100 mcg EPIDUR Q3H PRN PRN Reason: Pain Last Admin: 06/05/21 04:37 Dose: 100 mcg Documented by: Fentanyl/Bupivacaine HCl (Bupivacaine/Fentanyl/Ns 100 Ml Bag) 100 ml EPIDUR ASDIRECTED PRN PRN Reason: Pain Last Admin: 06/05/21 04:38 Dose: 100 ml Documented by: Lactated Ringer's (Ringers, Lactated) 1,000 mls @ 100 mls/hr IV ASDIRECTED BRADY Last Admin: 06/05/21 06:57 Dose: 100 mls/hr Documented by: Oxytocin/Lactated Ringer's (Pitocin In Lr 10 Units/1,000 Ml) 10 unit in 1,000 mls @ 500 mls/hr IV .CONTINUOUS BRADY Oxytocin/Lactated Ringer's (Pitocin In Lr 10 Units/1,000 Ml) 10 unit in 1,000 mls @ 12 mls/hr IV TITRATE BRADY; Protocol Last Titration: 06/05/21 11:12 Dose: 16 munits/min, 96 mls/hr Documented by: Oxytocin/Lactated Ringer's (Pitocin In Lr 20 Units/1,000 Ml) 20 unit in 1,000 mls @ 60 mls/hr IV TITRATE BRADY; Protocol Last Admin: 06/05/21 10:20 Dose: 60 mls/hr Documented by: Ibuprofen (Ibuprofen 600 Mg Tab) 600 mg PO Q4H PRN PRN Reason: Pain Last Admin: 06/05/21 13:41 Dose: 600 mg Documented by: Nalbuphine HCl (Nalbuphine 10 Mg/1 Ml Vial) 10 mg IVPUSH Q2H PRN PRN Reason: Pain Last Admin: 06/05/21 02:16 Dose: 10 mg Documented by: Ondansetron HCl (Ondansetron 4 Mg/2 Ml Sdv) 4 mg IVPUSH Q4H PRN PRN Reason: Nausea/Vomiting Sodium Chloride (Sodium Chloride 0.9% 10 Ml Syringe) 10 ml FLUSH ASDIRECTED PRN PRN Reason: Keep Vein Open - Interaction Infant Disposition, : Elim at Bedside Support Person: - Recovery Exam Fundal Tone: Firm Fundal Level: 3 Fingerbreadths Below Umbilicus Fundal Placement: Midline Lochia Amount: Scant, Small Lochia Color: Rubra/Red Perineum Description: Intact, Minimal Bruising/Swelling Episiotomy/Laceration: None Bladder Status: Nonpalpable, Voiding Urinary Elimination: Voided - Exam General: Alert, Oriented HEENT: Pupils Equal Neck: Supple Lungs: Clear to Auscultation, Normal Respiratory Effort Cardiovascular: Regular Rate, Regular Rhythm GI/Abdominal Exam: Normal Bowel Sounds, Soft, Non-Tender, No Organomegaly, No Distention, No Abnormal Bruit, No Mass, Pelvis Stable Skin: Warm, Dry Neurological: No New Focal Deficit Psy/Mental Status: Alert, Normal Affect, Normal Mood - Problem List Review Problem List Initiated/Reviewed/Updated: Yes - Assessment Assessment:: Term delivery. Doing well. No complaints. Baby will be discharged tomorrow so will await discharge then. Minimal pain. Minimal bleeding.
--- NOTE | 2021-06-06 07:44 | PCM48HPAN ---
Post Anesthesia Note - EVALUATION WITHIN 48HRS OF ANESTHETIC Vital Signs in Normal Range: Yes Patient Participated in Evaluation: Yes Respiratory Function Stable: Yes Airway Patent: Yes Cardiovascular Function Stable: Yes Hydration Status Stable: Yes Pain Control Satisfactory: Yes Nausea and Vomiting Control Satisfactory: Yes Mental Status Recovered: Yes Vital Signs: Last Vital Signs Temp 37.3 C 06/05/21 20:38 Pulse 87 06/05/21 20:38 Resp 14 06/05/21 20:38 BP 118/80 06/05/21 20:38 Pulse Ox 99 06/05/21 20:38 - COMMENTS/OBSERVATIONS Free Text/Narrative:: no anesthesia complications noted
[2021-06-06] MEDS: Acetaminophen 325 MG Tab PO PRN ×2 (11:05→17:10)
[2021-06-06] MEDS: Prenatal Multivitamin with Calcium/Folic Acid/Iron Tab PO SCH (11:05)
[2021-06-07] MEDS: Ibuprofen 600 MG Tab PO PRN (04:26)
--- NOTE | 2021-06-07 07:24 | PCM.DCSUM1 ---
Discharge Summary - Hospital Course Free Text/Narrative:: Stage I: Juan Jose is a 31-year-old 1 now para 1-0-0-1 female presently at 39-1/7 weeks with an JOSH of 06/11/2021 admitted on 06/04/2021 with SROM and positive AmniSure in early labor. She was initially started on Pitocin and throughout the course of the night of 06/04/2021 and the a.m. of 06/05/2021 Oleg made good progress. She had an epidural placed for labor analgesia with good results. She became completely dilated by approximately 1130 hrs. She pushed well and within the course of approximately 45 minutes delivered. Stage II: Oleg delivered at 1229 hrs. on 06/05/2021. She delivered a viable, harvey, male with Apgars of 8 and 9, a weight of 6 pounds 2.1 ounces (2780 g), Apgars of 8 and 9 and a length of 21.0 inches. The baby delivered easily with gentle downward traction to deliver the anterior shoulder then upward traction to deliver the posterior shoulder. No laceration was encountered and no stitches were needed. After complete delivery of the baby he was placed on mom's abdomen. He was dried with warm blanket and nose and mouth suctioned. The umbilical cord was allowed to pulsate for approximately 3 minutes then was clamped x2 and cut by the baby's Father Macho. 3 vessels were noted in the cord. Cord blood was obtained. Pitocin was increased to 500 cc an hour to facilitate increase in uterine tone and decrease likelihood of uterine bleeding. Stage III: The placenta delivered in a Cuellar presentation, it appeared intact and complete. It was discarded per patient desire. Estimated blood loss was about 125 cc. Patient plans to breast-feed. After delivery patient is done very well. She epidural has worn off completely. She is ambulating well, voiding without problems, nursing without concerns and has minimal lochia. She is desiring discharge home. Condition: Good. - Discharge Data Discharge Date: 06/07/21 Discharge Disposition: Home, Self-Care 01 Condition: Good - Referral to Home Health Primary Care Physician: Yakelin Hodgson MD - Discharge Diagnosis/Problem(s) (1) 39 weeks gestation of SNOMED Code(s): 29563046 ICD Code: Z3A.39 - 39 WEEKS GESTATION OF Status: Acute Current Visit: Yes (2) SROM (spontaneous rupture of membranes) SNOMED Code(s): 345752724 ICD Code: [id number] - Status: Acute Current Visit: Yes (3) Obesity SNOMED Code(s): 745447537, 165268892 ICD Code: E66.9 - OBESITY, UNSPECIFIED Status: Acute Current Visit: Yes - Patient Instructions Diet: Regular Diet as Tolerated (Nursing diet with increased calories and calcium as recommended) Activity: As Tolerated (No intercourse or tampons until bleeding resolves) Driving: May Drive Today Showering/Bathing: May Shower (May take a bath) Notify Provider of: Fever, Increased Pain, Swelling and Redness, Nausea and/or Vomiting - Discharge Plan Home Medications: Home Meds Ferrous Sulfate [Iron] 1 tab PO 06/04/21 [History] Omeprazole Magnesium [Prilosec Otc] 1 06/04/21 [History] Vits #93/Iron Fum/FA [ Formula Tablet] 1 tab PO DAILY 06/04/21 [History] Acetaminophen [Tylenol] 650 mg PO Q4H PRN tablet 06/07/21 [Rx] Ibuprofen [Motrin] 600 mg PO Q4H PRN tablet 06/07/21 [Rx] Referrals: Yakelin Hodgson MD [Primary Care Provider] - (Return [facility] weeks.) - Discharge Summary/Plan Comment DC Time >30 min.: No Total # of Minutes for Discharge Time: 10 Discharge Summary/Plan Comment: Discharge instructions: 1. Discharge home 2. Diet, activity and follow-up discussed with patient. Recommend nursing diet with increased calories and calcium. 3. Precautions given concern increased pain, bleeding, temperature, signs/symptoms of DVT/PE. 4. Medications per home medication was printed, discussed with and given to the patient. 5. Return to clinic-Dr. Hodgson[facility] in 2 weeks. Diagnosis: Term -delivered Condition: Good - Patient Data Vitals - Most Recent: Last Vital Signs Temp 36.5 C 06/07/21 04:05 Pulse 87 06/07/21 04:05 Resp 16 06/07/21 04:05 BP 121/65 06/07/21 04:05 Pulse Ox 97 06/07/21 04:05 Weight - Most Recent: 89.63 kg Med Orders - Current: Current Medications Acetaminophen (Acetaminophen 325 Mg Tab) 650 mg PO Q4H PRN PRN Reason: mild pain or fever Last Admin: 06/06/21 17:10 Dose: 650 mg Documented by: Benzocaine/Menthol (Benzocaine/Menthol 20%-0.5% Beulah 56 Gm Canister) 0 gm TOP ASDIRECTED PRN PRN Reason: Perineal Comfort Measure Last Admin: 06/05/21 14:38 Dose: 1 pad Documented by: Docusate Sodium (Docusate Sodium 100 Mg Cap) 100 mg PO BID PRN PRN Reason: Constipation Last Admin: 06/06/21 21:40 Dose: 100 mg Documented by: Ibuprofen (Ibuprofen 600 Mg Tab) 600 mg PO Q4H PRN PRN Reason: Mild pain or fever Last Admin: 06/07/21 04:26 Dose: 600 mg Documented by: Prenat Multivit/Soap Drier Tender/Iron/Folic Ac ( Multivitamin With Calcium/Folic Acid/Iron Tab) 1 each PO DAILY BRADY Last Admin: 06/06/21 11:05 Dose: 1 each Documented by: Ronnie Guevara (Ronnie Paola Medicated Pads 40/Jar) 1 pad TOP ASDIRECTED PRN PRN Reason: Perineal Comfort Measure Last Admin: 06/06/21 15:45 Dose: 1 pad Documented by: Discontinued Medications Acetaminophen (Acetaminophen 325 Mg Tab) 650 mg PO Q4H PRN PRN Reason: pain Last Admin: 06/05/21 09:44 Dose: 650 mg Documented by: Calcium Carbonate/Glycine (Calcium Carbonate 500 Mg Tab.Chew) 1,000 mg PO Q2H PRN PRN Reason: Indigestion Diphenhydramine HCl (Diphenhydramine 50 Mg/Ml Sdv) 25 mg IVPUSH Q6H PRN PRN Reason: pruritis Ephedrine Sulfate (Ephedrine 50 Mg/Ml Sdv) 5 mg IVPUSH ASDIRECTED PRN PRN Reason: Hypotension Fentanyl (Fentanyl 100 Mcg/2 Ml Sdv) 100 mcg EPIDUR Q3H PRN PRN Reason: Pain Last Admin: 06/05/21 04:37 Dose: 100 mcg Documented by: Fentanyl/Bupivacaine HCl (Bupivacaine/Fentanyl/Ns 100 Ml Bag) 100 ml EPIDUR ASDIRECTED PRN PRN Reason: Pain Last Admin: 06/05/21 04:38 Dose: 100 ml Documented by: Lactated Ringer's (Ringers, Lactated) 1,000 mls @ 100 mls/hr IV ASDIRECTED BRADY Last Admin: 06/05/21 06:57 Dose: 100 mls/hr Documented by: Oxytocin/Lactated Ringer's (Pitocin In Lr 10 Units/1,000 Ml) 10 unit in 1,000 mls @ 500 mls/hr IV .CONTINUOUS BRADY Oxytocin/Lactated Ringer's (Pitocin In Lr 10 Units/1,000 Ml) 10 unit in 1,000 mls @ 12 mls/hr IV TITRATE BRADY; Protocol Last Titration: 06/05/21 11:12 Dose: 16 munits/min, 96 mls/hr Documented by: Oxytocin/Lactated Ringer's (Pitocin In Lr 20 Units/1,000 Ml) 20 unit in 1,000 mls @ 60 mls/hr IV TITRATE BRADY; Protocol Last Admin: 06/05/21 10:20 Dose: 60 mls/hr Documented by: Ibuprofen (Ibuprofen 600 Mg Tab) 600 mg PO Q4H PRN PRN Reason: Pain Last Admin: 06/05/21 13:41 Dose: 600 mg Documented by: Nalbuphine HCl (Nalbuphine 10 Mg/1 Ml Vial) 10 mg IVPUSH Q2H PRN PRN Reason: Pain Last Admin: 06/05/21 02:16 Dose: 10 mg Documented by: Ondansetron HCl (Ondansetron 4 Mg/2 Ml Sdv) 4 mg IVPUSH Q4H PRN PRN Reason: Nausea/Vomiting Sodium Chloride (Sodium Chloride 0.9% 10 Ml Syringe) 10 ml FLUSH ASDIRECTED PRN PRN Reason: Keep Vein Open
[2021-06-07] MEDS: Prenatal Multivitamin with Calcium/Folic Acid/Iron Tab PO SCH (08:47)
== END 2021-06-07 15:09 | disposition home or self-care (01) | DRG 560 ==
LOC: JD.OBCHECK 21:44 → JD.OB 21:49 → JD.OBCHECK 22:27 → JD.OB 22:28 → OBSVTOIN 06-05 12:29 → JD.OB 06-05 12:30
PROVIDERS: ADMIT Obstetrics & Gynecology; ATTEND Obstetrics & Gynecology
PROC: 10E0XZZ Delivery of Products of Conception, External Approach (ICD-10-PCS; principal; 2021-06-05)
PROC: 3E0R3BZ Introduction of Anesthetic Agent into Spinal Canal, Percutaneous Approach (ICD-10-PCS; 2021-06-05)
PROC: 00HU33Z Insertion of Infusion Device into Spinal Canal, Percutaneous Approach (ICD-10-PCS; 2021-06-05)
DX: O99.214 Obesity complicating childbirth (principal); E66.9 Obesity, unspecified; Z3A.39 39 weeks gestation of pregnancy; Z37.0 Single live birth; Z20.822 Contact with and (suspected) exposure to COVID-19
CPT/HCPCS: 01967; 36415; 51702; 59025; 59409; 84112; 85025; 86592; 86850; 86870; 86900; 86901; A9270-GY; J2300; J2590; J3010; J7120; U0002

== ENCOUNTER 2024-04-07 08:45 | Day surgery (SDC) | payer BC ==
[~2024-04-07 08:45] MED LIST changes: -Lidocaine 1% 4 ML ONE; -Lidocaine 1%/Sod Bicarbonate in NS 8.4% 1 ML Syringe IDERM PRN; -Propofol 200 MG/20 ML SDV ONE; +Sodium Chloride 0.9% 10 ML Syringe FLUSH SCH
[2024-04-07] MEDS ORDERED: Propofol 200 MG/20 ML SDV ONE ×2 (10:37)
[2024-04-07] MEDS ORDERED: Midazolam 1 MG/ML 2 ML SDV ONE (10:37)
[2024-04-07] MEDS ORDERED: fentaNYL 100 MCG/2 ML SDV ONE (10:37)
[2024-04-07] MEDS: Lactated Ringers 1,000 ML IV SCH (11:00)
[2024-04-07] MEDS ORDERED: Lidocaine 1% 4 ML ONE (11:40)
== END 2024-04-07 12:40 | disposition home or self-care (01) ==
LOC: JD.SDS 08:45
PROVIDERS: ATTEND Surgery
DX: K29.50 Unspecified chronic gastritis without bleeding (principal); K20.90 Esophagitis, unspecified without bleeding; F41.9 Anxiety disorder, unspecified; Z87.891 Personal history of nicotine dependence; Z79.899 Other long term (current) drug therapy; Z88.0 Allergy status to penicillin; Z88.2 Allergy status to sulfonamides
CPT/HCPCS: 43239; J2250; J2704; J7120; 00731; J3010; J3490